=== PATIENT | female | born 1945 | race Caucasian/White ===

== ENCOUNTER → 2022-05-27 | Outpatient (CLI) | payer MEDICARE, OTHER ==
--- NOTE | 2022-05-27 12:12 | Diagnostic Imaging Report ---
INDICATION: Postmenopausal screening COMPARISON: 04/20/2001 FINDINGS: AP Spine L1-L4: [BMD (g/cm2): 1.174] [T-Score: -0.2] [Z-Score: 1.5] [BMD Previous: 1.175] [BMD % Change: -0.1] LT Hip Neck: [BMD (g/cm2): 0.715] [T-Score: -2.3] [Z-Score: -0.4] LT Hip Total: [BMD (g/cm2):0.828] [T-Score:-1.4] [Z-Score: 0.4] [BMD Previous: 0.973] [BMD % Change: -14.9] RT Hip Neck: [BMD (g/cm2):0.700] [T-Score:-2.4] [Z-Score:-0.5] RT Hip Total: [BMD (g/cm2):0.768] [T-score:-1.9] [Z-Score:-0.1] [BMD Previous:0.978] [BMD % Change:-21.5] *Indicates significant change from prior examination based on 95% confidence level. World Health Organization criteria for BMD interpretation classify patients as Normal (T-score at or above -1.0), Osteopenic (T-score between -1.0 and -2.5) or Osteoporotic (T-score at or below -2.5). LIMITATIONS AND MODIFICATION: None. FRACTURE RISK (FRAX SCORE): The ten year probability of (%): Major Osteoporotic Fracture: [17.8] Hip Fracture: [5.8] IMPRESSION: 1. Osteopenia (Low bone mass). 2. Bone mineral density has decreased by a statistically significant amount, as detailed above. 3. See below National Osteoporosis Foundation guidelines on when to potentially initiate pharmacologic therapy. Based on the National Osteoporosis Foundation Guidelines, pharmacologic treatment should be initiated in any of the following, unless clinical conditions suggest otherwise: * Any patient with prior fragility fracture of the hip or vertebrae. A spine fracture indicates 5X risk for subsequent spine fracture and 2X risk for subsequent hip fracture. * Osteoporosis (T-score <-2.5). * Postmenopausal women and men age 50 and older with low bone mass/osteopenia (T-score between -1.0 and -2.5) by DXA and 10-year major osteoporotic fracture greater than 20% or a 10-year probability of hip fracture greater than 3%. These fracture risks are supplied above in the FRAX score, if applicable. * Clinician judgement and/or patient preferences may indicate treatment for people with 10-year fracture probabilities above or below these levels. Dictated by: Dictated on workstation # [id number]
== END ==
LOC: RAD 10:54
PROVIDERS: ATTEND Family Medicine
DX: Z13.820 Encounter for screening for osteoporosis (principal); M85.88 Other specified disorders of bone density and structure, other site; Z78.0 Asymptomatic menopausal state
CPT/HCPCS: 77080

== ENCOUNTER 2023-01-09 11:26 | Emergency (ER) | payer MEDICARE, OTHER ==
[~2023-01-09] VITALS: Ht 155 cm; Wt 70.0 kg
[2023-01-09 11:30] VITALS: BP 154/92
--- NOTE | 2023-01-09 11:57 | ED General ---
General Chief Complaint: General Problems/Pain Stated Complaint: FEVER | COUGH | COLD Nursing Triage Note: PATIENT AMBULATORY TO ROOM 9 IN ER W C/O TAKING TOO MUCH OF HER MEDICATION THIS AM. PATIENTS SON STATES HIS MOTHER TOOK [address] KRUGER PRESCRIBED MEDICATION FOR BEGINNING STAGES OF PNEUMONIA. PATIENT TOOK MEDS APPROX 0630. PATIENTS SON STATES PATIENTS HR IS ELEVATED, CHEEKS ARE RED, AND SHE'S STARTING TO GET A HUTSON FACE. Source of Information: Patient Exam Limitations: No Limitations History of Present Illness Date Seen by Provider: Jan 09, 2023 Time Seen by Provider: 11:46 Initial Comments 77-year-old female presents to the ED with son. She is currently being treated for pneumonia with an antibiotic, prednisone, inhaler, and codeine cough syrup. Her son states that he went to visit her this morning and noticed that her cheeks were flushed and she was complaining of her heart racing. States he checked her heart rate and it was 74, this is high for her, her heart rate usually in the 50-60s. He then saw that there was an empty bottle of prednisone in the trash. States that she would have taken 6 tablets of 20 mg prednisone's this morning. She thinks she took it around 830 or 9 this morning. Son states that she is often forgetful. Allergies and Home Medications Patient Home Medication List Home Medication List Reviewed: Yes Prednisone (Prednisone) 20 Mg Tab, 20 MG PO BID Prescribed by: Lucy Garcia on 01/09/23 1158 Review of Systems Review of Systems Constitutional: no symptoms reported Respiratory: cough Cardiovascular: no symptoms reported Past Bheojed-Lujlvy-Tslefu Hx Patient Social History Tobacco Use?: No Substance use?: No Alcohol Use?: Yes Alcohol Frequency: Daily Immunizations Up To Date COVID19 Vaccine [employer]: MODERNA Physical Exam Vital Signs Vital Signs - First Documented 01/09/23 11:30 Temp 36.9 Pulse 62 Resp 20 B/P (MAP) 154/92 (112) Pulse Ox 98 O2 Delivery Room Air Capillary Refill : Less Than 3 Seconds Height, Weight, BMI Height: '" Weight: lbs. oz. kg; 29.00 BMI Method: General Appearance: No Apparent Distress, WD/WN HEENT: Other (Cheeks flushed) Neck: Non Tender, Supple Respiratory: No Accessory Muscle Use, No Respiratory Distress, Wheezing (slight expiratory wheeze) Cardiovascular: No Edema, No Gallop, No JVD, No Murmur, Bradycardia Extremity: Normal Inspection, Non Tender Neurologic/Psychiatric: Alert, Normal Mood/Affect Skin: Normal Color, Warm/Dry Progress/Results/Core Measures Suspected Sepsis SIRS Temperature: Pulse: 62 Respiratory Rate: 20 Blood Pressure 154 /92 Mean: 112 Results/Orders Vital Signs/I&O 01/09/23 11:30 Temp 36.9 Pulse 62 Resp 20 B/P (MAP) 154/92 (112) Pulse Ox 98 O2 Delivery Room Air Capillary Refill : Less Than 3 Seconds Blood Pressure Mean: 112 Progress Note : Time: 11:55 Progress Note Patient seen and evaluated, resting on bed, no acute distress. Poison control called for guidance on treatment. They do not recommend monitoring or any lab work. They state patient can be discharged at this time. Patient's lung sounds were slightly wheezy, patient declined breathing treatment here, states she wants to go home and use her inhaler. Patient and son given discharge instructions and return precautions. Departure Impression Primary Impression: Accidental prednisone overdose Qualified Codes: T38.0X1A - Poisoning by glucocorticoids and synthetic analogues, accidental (unintentional), initial encounter Disposition: 01 HOME, SELF-CARE Condition: Stable Departure-Patient Inst. Decision time for Depature: 11:56 Referrals: REBECCA KRUGER MD (PCP/Family) Primary Care Physician Patient Instructions: Prednisone Add. Discharge Instructions: Return for any new, concerning, worsening symptoms. Follow-up with your primary care provider. All discharge instructions reviewed with patient and/or family. Voiced understanding. Scripts Prednisone (Prednisone) 20 Mg Tab 20 MG PO BID for 3 Days, #6 TAB 0 Refills Take 3 tabs(60mg)daily, decrease by 1/2 tab(10mg)daily. Prov: LUCY GARCIA APRN 01/09/23 LUCY GARCIA APRN Jan 09, 2023 11:57
[2023-01-09] MEDS ORDERED: PRD20T PO (11:58)
== END 2023-01-09 12:03 | disposition home or self-care (01) ==
LOC: EDUNIT# 11:26 → ER 11:30
DX: R06.2 Wheezing (principal); T38.0X1A Poisoning by glucocorticoids and synthetic analogues, accidental (unintentional), initial encounter
CPT/HCPCS: 99281